=== PATIENT | male | born 1950 | race Two or more races ===

== ENCOUNTER 2025-01-04 07:22 | Emergency (ER) | payer MEDICARE, MEDICAID, SELFPAY ==
--- NOTE | 2025-01-04 07:34 | EKG_ITS ---
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
[2025-01-04 07:44] VITALS: BP 113/75; PULSE 90; RESP 17; TEMP 37.2; O2SAT 96
[2025-01-04 07:57] LABS: Collection Type, Urine Clean Catch
--- NOTE | 2025-01-04 07:57 | EDRME_ITS ---
Rapid Medical Screening Exam E Arrival date/time: 01/04/25 07:22 Chief Complaint: Weakness Vital signs: Vital Signs Temperature 98.9 F 01/04/25 07:44 Pulse Rate 90 01/04/25 07:44 Respiratory Rate 17 01/04/25 07:44 Blood Pressure 113/75 01/04/25 07:44 Pulse Oximetry (%) 96 01/04/25 07:44 Oxygen Delivery Method Room Air 01/04/25 07:44 Pulse ox room air is 96% Vital signs reviewed by provider: Yes [facility] Narrative: Patient after eating a hearty meal of chicken tacos developed vomiting. This occurred 1 week ago and since then has not vomited. However the patient did develop incontinence and is unable to control his urine. Denies a headache.
--- NOTE | 2025-01-04 07:59 | XR_ITS ---
Examination: CT brain head without contrast. 2-D sagittal coronal reconstructions Date and time of exam:January 04, 2025 0825 hours INDICATIONS: Spontaneous development of incontinence beginning 6 days ago CTDI: vol (mGy):48.9 DLP: (mGycm):13 Technique: Multiple CT axial sections of the brain have been obtained, 5 mm slice thickness. Contrast has not been administered. 2-D sagittal, coronal reconstructions have been obtained Low dose protocols were performed. One or more of the following dose reduction techniques were used; automated exposure control, adjustment of the mA and/or KV according to patient size, use of iterative reconstruction technique. Findings: No significant ventricular enlargement. Intra-axial or extra-axial hemorrhage density is not seen. No mass effect or midline shift Basal cisterns are not remarkable. Fourth ventricle is midline. Cranial vault intact. Significant left maxillary antral sinusitis Left temporal lobe tip subarachnoid cyst Impression: Negative for acute hemorrhage, mass effect or midline shift
[2025-01-04 08:12] LABS: Basophils # (Auto) 0.0 Thou/mm3 (0.0-0.2); Basophils % (Auto) 0 % (0-2.5); Eosinophils # (Auto) 0.0 Thou/mm3 (0.0-0.5); Eosinophils % (Auto) 0 % (0-10); Hematocrit 47.6 % (41.0-53.0); Hemoglobin 15.6 g/dL (13.5-16.0); Immature Granulocytes Auto 0.04 Thou/mm3 (0.00-0.00); Lymphocytes # (Auto) 0.5 Thou/mm3 (1.0-4.8); Lymphocytes % (Auto) 7 % (10-50); Mean Corpuscular HGB Conc 32.8 g/dl (31.0-37.0); Mean Corpuscular Hemoglobin 26.8 pg (25.0-35.0); Mean Corpuscular Volume 82 fL (80-100); Monocytes # (Auto) 0.7 Thou/mm3 (0.0-0.8); Monocytes % (Auto) 9 % (0-12); Neutrophils # (Auto) 6.4 Thou/mm3 (1.8-7.7); Neutrophils % (Auto) 83 % (37-80); Nucleated Red Blood Cell # 0.00 Thou/mm3 (0.00-0.00); Nucleated Red Blood Cell % 0 /100 WBC (0); Platelet Count 102 Thou/mm3 (140-440); RDW Standard Deviation 43.2 fL (35.1-43.9); Red Blood Count 5.82 Miln/mm3 (4.50-5.90); White Blood Count 7.7 Thou/mm3 (3.8-10.6)
[2025-01-04 08:20] LABS: Alanine Aminotransferase 36 U/L (10-49); Albumin, Serum 4.0 gm/dL (3.4-4.8); Albumin/Globulin Ratio 1.4 (1.2-2.2); Alkaline Phosphatase 149 U/L (46-116); Anion Gap 11 (7-16); Aspartate Amino Transferase 43 U/L (0-34); BUN/Creatinine Ratio 19 Ratio (12-20); Bilirubin,Total 0.9 mg/dL (0.3-1.2); Blood Urea Nitrogen 25 mg/dL (9-23); Calcium 9.3 mg/dL (8.3-10.6); Calcium (Corrected) 9.3 mg/dL (8.5-10.1); Carbon Dioxide 25.6 mMol/L (20.0-31.0); Chloride 100 mMol/L (98-107); Creatinine (Component) 1.3 mg/dL (0.6-1.3); Globulin 2.8 gm/dL (2.3-3.5); Glucose 108 mg/dL (74-106); Osmolality,Calculated 279 (275-295); Potassium 4.0 mMol/L (3.4-5.1); Sodium 137 mMol/L (136-145); Total Protein 6.8 gm/dL (5.7-8.2); eGFR 58 See Note
[2025-01-04 08:45] LABS: Bacteria,Urine 2+; Bilirubin,Urine Negative (Negative); Blood,Urine 3+ (Negative); Clarity,Urine Turbid (Clear/Hazy); Color,Urine Yellow (Lt Yel-Yel); Glucose, Urine Negative (Negative); Ketones,Urine 2+ (Negative); Leukocyte Esterase,Urine Positive (Negative); Nitrite,Urine Negative (Negative); PH,Urine 6.5 (5.0-7.0); Protein,Urine 1+ (Neg - Trace); RBC,Urine 129 /hpf (0-3); Specific Gravity,Urine 1.029 (1.001-1.035); Squamous Epithelial Cell,Urine < 1 /hpf (0-5); Transitional Epi Cells,Urine 2 /hpf (0-5); Urobilinogen,Urine 2.0 mg/dL (0.0-1.0); WBC,Urine 645 /hpf (0-5)
[2025-01-04 08:46] LABS: Culture Indicated,Urine Yes
[2025-01-04 10:02] VITALS: BP 115/76; PULSE 78; RESP 19; TEMP 36.9; O2SAT 97; BMI 25.5
--- NOTE | 2025-01-04 10:57 | PD.EDWEAK ---
ED Weakness RME/HPI General Chief complaint: Weakness Stated complaint: Fever, vomiting, urinating a lot Source: patient and family Arrival date/time: 01/04/25 07:22 Mode of arrival: ambulatory Limitations: no limitations RME / HPI RME / HPI Narrative: Patient after eating a hearty meal of chicken tacos developed vomiting. This occurred 1 week ago and since then has not vomited. However the patient did develop incontinence and is unable to control his urine. Denies a headache. MD Complaint: generalized weakness Related Data Home Medications ?Medication ?Instructions ?Recorded ?Confirmed benazepril 20 mg tablet 20 mg PO QDAY 01/22/22 02/23/22 tamsulosin 0.4 mg capsule 0.4 mg PO QDAY 01/22/22 02/23/22 Previous Rx's ?Medication ?Instructions ?Recorded azithromycin 500 mg tablet See Rx Instructions PO .COMPLEX #6 05/15/23 tabs cephalexin 500 mg tablet 500 mg PO QID #40 tabs 01/04/25 Allergies Allergy/AdvReac Type Severity Reaction Status Date / Time No Known Allergies Allergy Verified 01/04/25 07:26 Review of Systems Constitutional Constitutional: Reports system reviewed and no additional complaints, except as documented Eyes Eyes: Reports system reviewed and no additional complaints, except as documented, Denies dry eyes, Denies exophthalmos and Reports floaters Cardiovascular Cardiovascular: Denies chest pain with activity and Denies claudication ED Exam General Limitations: Present no limitations General appearance: Present alert and in no apparent distress Head Head exam: Present atraumatic Eye Eye exam: Present normal appearance and EOMI ENT ENT exam: Present normal exam, normal oropharynx and mucous membranes moist Neck Neck exam: Present normal inspection, full ROM and trachea midline Respiratory Respiratory exam: Present normal lung sounds bilaterally Cardiovascular Cardiovascular exam: Present regular rate, normal rhythm and normal heart sounds Abdominal Exam Abdominal exam: Present soft, tenderness (No apparent tenderness to palpation.) and normal bowel sounds Rectal Exam Rectal exam: Present deferred Extremities Exam Extremities exam: Present normal inspection and full ROM Back Exam Back exam: Present normal inspection, full ROM and CVA tenderness (R) (Negative CVA tenderness.) Neurological Exam Neurological exam: Present alert and oriented X3 Psychiatric Psychiatric exam: Present normal affect and normal mood Skin Skin exam: Present warm, dry, intact and normal color Course Course Course Narrative: Patient will have a EKG, CT of the head, CBC, CMP, UA,. Quality Measures none Orders Category Date Time Status Bedside COVID-19 Antigen Test NOW Care 01/04/25 07:34 Active Bedside Influenza A&B Antigen Test NOW Care 01/04/25 07:36 Completed EKG (ED ONLY) *Do not use* NOW Care 01/04/25 07:[address] head/brain wo con Stat Exams 01/04/25 07:59 Completed EKG (ED Only) Stat Exams 01/04/25 07:34 Ordered CBC Stat Lab 01/04/25 07:41 Completed CMP [Comprehensive Metabolic Panel] Stat Lab 01/04/25 07:41 Completed Urinalysis, C/S if Indicated Stat Lab 01/04/25 07:42 Completed Urine Culture Stat Lab 01/04/25 07:42 Received cefTRIAXone [Rocephin] 1,000 mg Med 01/04/25 10:36 Discontinued Lidocaine 1% 20 ml [Xylocaine 1% 20 ML] 2.1 ml IM X1 Vital Signs Vital signs: Vital Signs Temperature 98.9 F 01/04/25 07:44 Pulse Rate 90 01/04/25 07:44 Respiratory Rate 17 01/04/25 07:44 Blood Pressure 113/75 01/04/25 07:44 Pulse Oximetry (%) 96 01/04/25 07:44 Oxygen Delivery Method Room Air 01/04/25 07:44 Pulse ox is 96% Weakness MDM Narrative MDM Narrative:: Patient who has a urinary tract infection will have 1 g of Rocephin. He will be discharged home in no apparent distress. I was sent to the pharmacy of his choice cephalexin 500 mg to be consumed 1 p.o. every 6 hours x 10 days. Patient is to have a close follow-up with primary care physician and if he needs to he may return here. Note the patient does not have any CVA tenderness nor does he have any abdominal pain nor does he exhibit any pain consistent with a kidney stone. I spoke with Dr. Rosa and present in his case. It is agreed that the patient has a urinary tract infection and that he has to be discharged to home. Patient data External records reviewed:: Other (specify) (NA) Clinical information provided by:: none (NA) Social determinants that could affect healthcare access:: none (NA) Patient has the following chronic illnesses:: HTN How is presenting disease/condition affected by chronic disease/condition?: no chronic disease (HTN) Evaluation data The following diagnostics were reviewed and interpreted by me:: lab results (UA demonstrates a urinary tract infection) Lab and/or radiology exams considered but not ordered:: NA Interpretation Summary: NA Medications / Prescriptions Medications or Prescriptions considered but not ordered:: NA Medication administrations:: Medication Administration History Discontinued Medications Ceftriaxone Sodium 1,000 mg/ (Lidocaine HCl 2.1 ml) 0 mg IM X1 ONE Stop: 01/04/25 10:37 NA Consultations Consultation(s) initiated? (list below): No Diagnosis Weakness Differential Diagnosis: anemia, hypoglycemia and hypothyroidism Most likely diagnosis given after review of the tests above:: NA Admission Indicated Admission indicated?: not indicated Admission Request Was there a request for admission?: No Disposition Plan Disposition Plan: Discharge Discharge Attestation Discharge Attestation: The patient and all family members were given an opportunity to ask questions and understood the discharge instructions. Discharge instructions specifically effects, indications for sooner follow up or return to the emergency department, and the expected course of current diagnosis. Patient condition: Stable Discharge Plan Plan Patient Disposition: HOME (Self Care) Discharge Disposition comment: Discharged in no apparent distress Patient condition on transfer: Stable Prescriptions/Referrals Prescriptions/Med Rec: New cephalexin 500 mg tablet 500 mg PO QID Qty: 40 0RF No Action tamsulosin 0.4 mg Capsule 0.4 mg PO QDAY benazepril 20 mg Tablet 20 mg PO QDAY azithromycin 500 mg tablet See Rx Instructions .ROUTE .COMPLEX Qty: 6 0RF Rx Instructions: take 500 mg today (day 1), then 250 mg for 4 days (days 2-5) Referrals: Inocencia Parekh PA-C [Primary Care Provider] - In 1 week Problem List Clinical Impression: Acute UTI Patient/Caregiver Discharge Instructions Discharge Activity: activity as tolerated Print Language: Estonian Stand Alone Forms: Delma Award Info., Patient Portal Info Letter FRANCK/KAY Supervising Physician FRANCK/KAY Supervising Physician: MARCIA
[2025-01-04] MEDS: cefTRIAXone 1,000 MG, LIDOCAINE 1% 20 ML 2.1 ML IM (11:09)
[2025-01-04 11:22] VITALS: BP 115/82; PULSE 71; RESP 17; TEMP 36.6; O2SAT 98
== END 2025-01-04 11:24 | disposition home or self-care (01) ==
PROVIDERS: Emergency Provider Emergency Medicine; PCP Physician Assistant
DX: N39.0 Urinary tract infection, site not specified (principal); I44.4 Left anterior fascicular block
CPT/HCPCS: 36415; 70450; 80053; 81001; 85025; 87077; 87086; 87186; 87400; 87811; 93005; 99283; J0696; J3490

== ENCOUNTER 2025-01-23 13:21 | Inpatient (IN) | payer MEDICARE, MEDICAID, SELFPAY ==
--- NOTE | 2025-01-23 14:06 | XR_ITS ---
Examination: PA chest single view TECHNIQUE: Upright PA chest single view Date and time: January 23, 2025 1413 hours INDICATIONS: Chest pain shortness of breath fever today FINDINGS: Normal heart size Suspicious for early pneumonia right base Left lung clear Mild osteopenia IMPRESSION: Suspicious for early right basilar pneumonia
--- NOTE | 2025-01-23 14:06 | EKG_ITS ---
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
--- NOTE | 2025-01-23 14:06 | XR_ITS ---
Examination: CT abdomen with intravenous contrast CT pelvis with intravenous contrast 2-D coronal reconstructions 2-D sagittal reconstructions Date and time of exam:January 23, 2025, 1434 hours Comparison December 02, 2021 INDICATIONS: Fever upper abdominal pain today. CTDI: vol (mGy) 14.3 DLP: (mGycm) 657. Technique: Multiple axial sections of the abdomen and pelvis have been obtained. 64 slice high-resolution scanner used. 3 mm axial sections have been obtained, post intravenous injection of 60 cc [id number] 2-D sagittal, coronal reconstructions obtained. Low dose protocols were performed. One or more of the following dose reduction techniques were used; automated exposure control, adjustment of the mA and/or KV according to patient size, use of iterative reconstruction technique. Findings: 18 mm right lobe liver cyst No gallstones Marked gastric edema and edema involving the duodenum No pancreatitis Normal adrenal glands Left perinephric stranding No renal or ureteral calculi No ureteral calculi Aorta normal size Normal appendix Colonic diverticulosis, no diverticulitis Significant prostatomegaly AP dimension 5.5 cm Marked thickening of the urinary bladder wall Fat-containing inguinal hernias IMPRESSION: Gastritis active peptic disease of the duodenum pattern Left perinephric stranding, consider urinary tract infection Normal appendix Significant prostatomegaly Thickening of the bladder wall, differential would include cystitis, urinary tract outflow obstruction secondary to the patient's prostatomegaly
--- NOTE | 2025-01-23 14:07 | PD.EDABDPN ---
ED Abdominal Pain RME/HPI General Chief Complaint: Abdominal Pain Stated complaint: FEVER, UPPER ABD PAIN Time seen by provider: 01/23/25 13:41 Arrival date/time: 01/23/25 13:21 RME / HPI RME / HPI narrative: 74-year-old male patient came in for evaluation regarding fever. Patient complaining of fever, since yesterday, described as low-grade fever associated with upper abdominal pain's been ongoing for several days, severity mild. Patient was also noted to have black stool for several days, more than 9 days according to him, and was seen in the clinic and was told that positive for blood. Patient currently is not taking any medication for upper GI bleed. Patient denies any vomiting blood. Patient also complained of generalized body weakness, and weight loss. He is not taking any blood thinner. Patient denies any alcohol abuse or drug abuse. Related Data Home Medications ?Medication ?Instructions ?Recorded ?Confirmed benazepril 20 mg tablet 20 mg PO QDAY 01/22/22 02/23/22 tamsulosin 0.4 mg capsule 0.4 mg PO QDAY 01/22/22 02/23/22 Previous Rx's ?Medication ?Instructions ?Recorded azithromycin 500 mg tablet See Rx Instructions PO .COMPLEX #6 05/15/23 tabs cephalexin 500 mg tablet 500 mg PO QID #40 tabs 01/04/25 Allergies Allergy/AdvReac Type Severity Reaction Status Date / Time No Known Allergies Allergy Verified 01/23/25 13:25 Review of Systems Review of Systems Narrative Review of Systems: Review of system reviewed and within normal limits except mentioned in HPI ED Exam Narrative Physical exam: VITAL SIGNS: Reviewed. GENERAL APPEARANCE: Alert and interactive, follows commands, no acute distress, HEAD AND FACE: Non-traumatic. ENT: PERRL, pale conjunctiva, eyelid no trauma, Mucous membrane moist. NECK: Supple, nontender, no nuchal rigidity. CHEST: No tenderness, no crepitus, no paradoxical movement, no retractions. LUNGS: Clear, well ventilated, symmetric, no rales, no wheezing, no ronchi, no stridor, good breath sounds bilaterally. HEART: Regular rate, regular rhythm, no murmur, no gallops. ABDOMEN: Soft, positive bowel sounds, nondistended, no guarding, nontender, no rebound, no masses, RECTAL: Rectal exam was done by me, no black tarry stool however tested positive for occult blood strongly. GENITAL: Deferred. NEUROLOGICAL: Gross motor function intact sensory function intact, Appropriate for age. MUSCULOSKELETAL: low back nontender, full range of motion. EXTREMITIES: Nontender, full range of motion. SKIN: Color pink, dry, no rash, no lacerations, no abrasions, no contusions. LYMPHATICS: Deferred. Course Quality Measures none Orders Category Date Time Status Bedside COVID-19 Antigen Test NOW Care 01/23/25 14:06 Active COVID-19 Screening Questionnaire NOW Care 01/23/25 19:[address] Screening NOW Care 01/23/25 14:06 Active Decision to Admit X1 Care 01/23/25 19:27 Active EKG (ED ONLY) *Do not use* NOW Care 01/23/25 14:06 Completed Occult Blood,Stool (Nursing) NOW Care 01/23/25 13:59 Active Consult to Gastroenterology Stat Cons 01/23/25 18:[address] abdomen pelvis w con Stat Exams 01/23/25 14:06 Completed EKG (ED Only) Stat Exams 01/23/25 14:06 Draft XR chest 1V Stat Exams 01/23/25 14:06 Completed CBC Stat Lab 01/23/25 14:35 Completed Comprehensive Metabolic Panel Stat Lab 01/23/25 14:35 Completed Lipase Stat Lab 01/23/25 14:35 Completed Partial Thromboplastin Time Stat Lab 01/23/25 14:35 Completed Prothrombin Time with INR Stat Lab 01/23/25 14:35 Completed Urinalysis Stat Lab 01/23/25 13:35 Completed Acetaminophen Ivpb [Ofirmev Inj] Med 01/23/25 18:25 Discontinued 1,000 mg in 100 ml IV X1 Pantoprazole Inj [Protonix Inj] Med 01/23/25 14:06 Discontinued 80 mg IVP X1 ONE cefTRIAXone/D5w 1gm IV premix [Rocephin/D5w 1gm IV Med 01/23/25 16:04 Discontinued premix] 1 gm in 50 ml IV X1 Vital Signs Vital signs: Vital Signs Temperature 99.8 F 01/23/25 14:24 Pulse Rate 78 01/23/25 14:24 Respiratory Rate 19 01/23/25 14:24 Blood Pressure 117/73 01/23/25 14:24 Pulse Oximetry (%) 98 01/23/25 14:24 Oxygen Delivery Method Room Air 01/23/25 14:24 Abdominal Pain MDM MDM Narrative MDM Narrative:: 74-year-old male patient came in for evaluation regarding fever. Patient complaining of fever, since yesterday, described as low-grade fever associated with upper abdominal pain's been ongoing for several days, severity mild. Patient was also noted to have black stool for several days, more than 9 days according to him, and was seen in the clinic and was told that positive for blood. Patient currently is not taking any medication for upper GI bleed. Patient denies any vomiting blood. Patient also complained of generalized body weakness, and weight loss. He is not taking any blood thinner. Patient denies any alcohol abuse or drug abuse. Rectal exam was done by me, tested positive for occult blood strong positive. There is no significant drop of hemoglobin from 15+ to 11+ about 2 weeks ago. Urinalysis positive for UTI. Chest x-ray showed possible early pneumonia. CT scan of the abdomen pelvis showed Gastritis active peptic disease of the duodenum pattern Left perinephric stranding, consider urinary tract infection Normal appendix Significant prostatomegaly Thickening of the bladder wall, differential would include cystitis, urinary tract outflow obstruction secondary to the patient's prostatomegaly Patient received Tylenol, ceftriaxone IV Protonix IV Case discussed with Dr. Brewer, GI specialist on-call, and will see the patient in the floor. Patient data External records reviewed:: None Clinical information provided by:: patient and family Social determinants that could affect healthcare access:: none Patient has the following chronic illnesses:: None How is presenting disease/condition affected by chronic disease/condition?: no chronic disease Evaluation data The following diagnostics were reviewed and interpreted by me:: lab results, radiology exam(s) and EKG tracing(s) Lab and/or radiology exams considered but not ordered:: None Interpretation Summary: EKG showed sinus rhythm, ventricular rate of 72 bpm, no ST segment elevation or depression noted. Medications / Prescriptions Medications or Prescriptions considered but not ordered:: None Medication administrations:: Medication Administration History Discontinued Medications Ceftriaxone Sodium/Dextrose (Rocephin/D5w 1gm Iv Premix) 1 gm in 50 mls @ 100 mls/hr IV X1 ONE Stop: 01/23/25 16:33 Last Infusion: 01/23/25 18:16 Dose: Infused Documented By: Admin: 01/23/25 17:46 Dose: 100 mls/hr Documented By: ER Acetaminophen (Ofirmev Inj) 1,000 mg in 100 mls @ 250 mls/hr IV X1 ONE Stop: 01/23/25 18:48 Last Infusion: 01/23/25 19:19 Dose: Infused Documented By: Admin: 01/23/25 18:55 Dose: 250 mls/hr Documented By: ER Pantoprazole Sodium (Pantoprazole Inj 40 Mg Vial) 80 mg IVP X1 ONE Stop: 01/23/25 14:07 Last Admin: 01/23/25 17:42 Dose: 80 mg Documented By: ER Tylenol, Protonix, and ceftriaxone IV Consultations Consultation(s) initiated? (list below): Yes Consultation #1 (Physician, Specialty, Details): Spoke with Dr. Brewer, thank you Dr. Brewer Diagnosis Differential diagnosis abdominal pain: abdominal pain and other (UTI, upper GI bleed) Most likely diagnosis given after review of the tests above:: Upper GI bleed, UTI Admission Indicated Admission indicated?: indicated Admission Request Was there a request for admission?: Yes Admission Attestation Admission request attestation: Discussed case with [Dr. Roberts] from Hospitalist service regarding admission. Discussed patients ED course, exam findings, labs, and radiology results. The Hospitalist [agrees] to accept the patient for admission. Disposition Plan Disposition Plan: Admit Discharge Plan Plan Patient Disposition: Admit Acute Care w/in Hospital Discharge Disposition comment: Stable Prescriptions/Referrals Prescriptions/Med Rec: No Action tamsulosin 0.4 mg Capsule 0.4 mg PO QDAY benazepril 20 mg Tablet 20 mg PO QDAY cephalexin 500 mg tablet 500 mg PO QID Qty: 40 0RF azithromycin 500 mg tablet See Rx Instructions .ROUTE .COMPLEX Qty: 6 0RF Rx Instructions: take 500 mg today (day 1), then 250 mg for 4 days (days 2-5) Referrals: Inocencia Parekh PA-C [Primary Care Provider] - In 1 week Problem List Clinical Impression: Acute upper gastrointestinal bleeding, UTI (urinary tract infection) Patient/Caregiver Discharge Instructions Print Language: Kiswahili Stand Alone Forms: Delma Award Info., Patient Portal Info Letter
[2025-01-23 14:24] VITALS: BP 117/73; PULSE 78; RESP 19; TEMP 37.7; O2SAT 98
[2025-01-23 14:25] VITALS: BMI 24.0
[2025-01-23 14:25] LABS: Collection Type, Urine Clean Catch
[2025-01-23 14:50] LABS: Basophils # (Auto) 0.0 Thou/mm3 (0.0-0.2); Basophils % (Auto) 0 % (0-2.5); Eosinophils # (Auto) 0.0 Thou/mm3 (0.0-0.5); Eosinophils % (Auto) 0 % (0-10); Hematocrit 36.5 % (41.0-53.0); Hemoglobin 11.6 g/dL (13.5-16.0); Immature Granulocytes Auto 0.05 Thou/mm3 (0.00-0.00); Lymphocytes # (Auto) 0.9 Thou/mm3 (1.0-4.8); Lymphocytes % (Auto) 8 % (10-50); Mean Corpuscular HGB Conc 31.8 g/dl (31.0-37.0); Mean Corpuscular Hemoglobin 26.9 pg (25.0-35.0); Mean Corpuscular Volume 85 fL (80-100); Monocytes # (Auto) 0.7 Thou/mm3 (0.0-0.8); Monocytes % (Auto) 6 % (0-12); Neutrophils # (Auto) 9.5 Thou/mm3 (1.8-7.7); Neutrophils % (Auto) 85 % (37-80); Nucleated Red Blood Cell # 0.00 Thou/mm3 (0.00-0.00); Nucleated Red Blood Cell % 0 /100 WBC (0); Platelet Count 216 Thou/mm3 (140-440); RDW Standard Deviation 45.7 fL (35.1-43.9); Red Blood Count 4.32 Miln/mm3 (4.50-5.90); White Blood Count 11.1 Thou/mm3 (3.8-10.6)
[2025-01-23 15:09] LABS: Amorphous Crystals,Urine Present (Absent); Bacteria,Urine 4+; Bilirubin,Urine Negative (Negative); Blood,Urine 2+ (Negative); Clarity,Urine Turbid (Clear/Hazy); Color,Urine Yellow (Lt Yel-Yel); Glucose, Urine Negative (Negative); Ketones,Urine 1+ (Negative); Leukocyte Esterase,Urine Positive (Negative); Nitrite,Urine Negative (Negative); PH,Urine 6.0 (5.0-7.0); Protein,Urine 1+ (Neg - Trace); RBC,Urine 18 /hpf (0-3); Specific Gravity,Urine 1.027 (1.001-1.035); Squamous Epithelial Cell,Urine 1 /hpf (0-5); Urobilinogen,Urine 3.0 mg/dL (0.0-1.0); WBC,Urine 321 /hpf (0-5)
[2025-01-23 15:11] LABS: Alanine Aminotransferase 20 U/L (10-49); Albumin, Serum 4.1 gm/dL (3.4-4.8); Albumin/Globulin Ratio 1.6 (1.2-2.2); Alkaline Phosphatase 67 U/L (46-116); Anion Gap 10 (7-16); Aspartate Amino Transferase 21 U/L (0-34); BUN/Creatinine Ratio 20 Ratio (12-20); Bilirubin,Total 1.7 mg/dL (0.3-1.2); Blood Urea Nitrogen 20 mg/dL (9-23); Calcium 9.0 mg/dL (8.3-10.6); Calcium (Corrected) 9.0 mg/dL (8.5-10.1); Carbon Dioxide 25.3 mMol/L (20.0-31.0); Chloride 102 mMol/L (98-107); Creatinine (Component) 1.0 mg/dL (0.6-1.3); Estimated Creatinine Clearance 77.6 mL/min (>60); Globulin 2.5 gm/dL (2.3-3.5); Glucose 116 mg/dL (74-106); Lipase 26 U/L (12-53); Osmolality,Calculated 277 (275-295); Potassium 3.8 mMol/L (3.4-5.1); Sodium 137 mMol/L (136-145); Total Protein 6.6 gm/dL (5.7-8.2); eGFR > 60 See Note
[2025-01-23 15:16] LABS: INR 1.1 (0.9-1.3); Partial Thromboplastin Time 26.3 Seconds (22.0-36.0); Prothrombin Time 12.4 Seconds (9.0-12.2)
[2025-01-23 16:32] VITALS: BP 133/78; PULSE 78; RESP 19; TEMP 37.7; O2SAT 98
[2025-01-23 17:10] VITALS: BP 146/81; PULSE 89; RESP 20; TEMP 38.2; O2SAT 100
[2025-01-23] MEDS: cefTRIAXone/D5w 1gm IV premix 1 GM/50 ML BAG IV (17:46)
[2025-01-23 18:01] VITALS: BP 138/79; PULSE 88; RESP 16; TEMP 37.7; O2SAT 98
[2025-01-23] MEDS: ACETAMINOPHEN IVPB 1,000 MG/100 ML VIAL 250 MG IV (18:55)
--- NOTE | 2025-01-23 21:38 | ESHP_ITS ---
Documentation for date of: 01/23/25 [facility] History of Present Illness Chief complaint: Upper GI bleed/PUD History of present illness: 74-year-old male with a past medical history of hypertension and prior H. pylori infection (treated), presenting with intermittent melena for the past 2?3 weeks, associated with fatigue, dizziness on exertion, subjective weight loss per patients and daughter(~30-40 lbs over 1-2 month), and recent low-grade fevers. He also reports mild upper abdominal discomfort for the past few days. He denies hematemesis, bright red blood per rectum, nausea, vomiting, or chest pain. He endorses early satiety and poor oral intake. No shortness of breath, palpitations, or recent trauma. He was previously evaluated for melena in clinic and had positive stool occult blood. He was seen in the ED several weeks ago for a UTI and discharged on azithromycin and cephalexin. He completed the antibiotics but reports fever recurrence today, the day after returning from [place]. He denies NSAID use except for one dose of Motrin recently. He denies any anticoagulants, antiplatelets, alcohol, or drug use. No known prior GI bleeding. Per patient Last EGD and colonoscopy were done in [address] Brewer EGD showed an ulcer in the duodenum and was tested positive for H. pylori, colonoscopy showed a polyp that was removed. This is per patient EGD and colonoscopy report not found on EMR. ROS: Constitutional: +Weight loss, +Fatigue, +Fever GI: +Melena, -Hematemesis, -BRBPR, +Decreased appetite, +Upper abdominal pain : +Nocturia (~10x/night), -Hematuria, -Burning Cardio: -Chest pain, -Palpitations Pulm: -Cough, -Dyspnea Neuro: +Dizziness with activity, -Syncope MSK: No myalgias or joint pain Skin: No rashes or bleeding Past Medical History: * Hypertension * History of H. pylori gastritis (treated) Past Surgical History: * Hernia repair Medications: * Lisinopril * Recent antibiotics: Azithromycin, Cephalexin * 1 dose of Motrin recently for fever Allergies: * NKDA Family History: * Mother with liver cancer with metastasis Social History: * No tobacco or alcohol use currently (used in youth) * Returned from [place] yesterday * No known illicit drug use Imaging: Chest X-ray: Suspicious for early right basilar pneumonia CT Abd/Pelvis: -Gastritis and duodenal pattern consistent with active peptic disease -Left perinephric stranding -> consider UTI -Thickened bladder wall, prostatomegaly -> possible cystitis or obstruction Exam Vital Signs Temp Pulse Resp BP Pulse Ox O2 Del Method 99.9 F 88 16 138/79 H 98 Room Air 01/23/25 18:01 01/23/25 18:01 01/23/25 18:01 01/23/25 18:01 01/23/25 18:01 01/23/25 18:01 Narrative Exam General: Alert, interactive, no acute distress HEENT: Pale conjunctivae, moist mucosa, no trauma Neck: Supple, no JVD or lymphadenopathy CV: RRR, no murmurs, rubs, or gallops Resp: Clear to auscultation bilaterally Abdomen: Soft, nontender, nondistended, +BS, no guarding or rebound Rectal: positive FOBT Neuro: Grossly intact Skin: Dry, no rashes or ecchymoses Extremities: No edema, full ROM Results: Labs 01/23/25 14:35 01/23/25 14:35 Labs: Short CBC 01/23/25 Range/Units 14:35 WBC 11.1 H (3.8-10.6) Thou/mm3 Hgb 11.6 L (13.5-16.0) g/dL Hct 36.5 L (41.0-53.0) % Plt Count 216 D (140-440) Thou/mm3 BMP 01/23/25 14:35 Sodium 137 Potassium 3.8 Chloride 102 Carbon Dioxide 25.3 BUN 20 Creatinine 1.0 Glucose 116 H Calcium 9.0 Liver Function 01/23/25 Range/Units 14:35 Total Bilirubin 1.7 H (0.3-1.2) mg/dL AST 21 (0-34) U/L ALT 20 (10-49) U/L Alkaline Phosphatase 67 (46-116) U/L Albumin 4.1 (3.4-4.8) gm/dL Urine 01/23/25 Range/Units 13:35 Urine Color Yellow (Lt Yel-Yel) Urine Clarity Turbid A (Clear/Hazy) Urine pH 6.0 (5.0-7.0) Ur Specific [place] 1.027 (1.001-1.035) Urine Protein 1+ A (Neg - Trace) Urine Glucose (UA) Negative (Negative) Quality Measures Quality Measures VTE prophylaxis Advance care planning discussed with:: patient, spouse and child Medications Home Medications and Allergies Home Medications ?Medication ?Instructions ?Recorded ?Confirmed ?Type benazepril 20 mg tablet 20 mg PO QDAY 01/22/2201/24 History tamsulosin 0.4 mg capsule 0.4 mg PO QDAY 01/22/2209/15 History Allergies Allergy/AdvReac Type Severity Reaction Status Date / Time No Known Allergies Allergy Verified 01/23/25 13:25 Visit Medications Discontinued Medications Ceftriaxone Sodium/Dextrose (Rocephin/D5w 1gm Iv Premix) 1 gm in 50 mls @ 100 mls/hr IV X1 ONE Stop: 01/23/25 16:33 Last Infusion: 01/23/25 18:16 Dose: Infused Acetaminophen (Ofirmev Inj) 1,000 mg in 100 mls @ 250 mls/hr IV X1 ONE Stop: 01/23/25 18:48 Last Infusion: 01/23/25 19:19 Dose: Infused Pantoprazole Sodium (Pantoprazole Inj 40 Mg Vial) 80 mg IVP X1 ONE Stop: 01/23/25 14:07 Last Admin: 01/23/25 17:42 Dose: 80 mg Assessment & Plan Plan 74-year-old male with history of hypertension presenting with 2?3 weeks of melena, fatigue, and weight loss, found to have anemia (Hgb 11.6 from 15.8), CT evidence of duodenal peptic disease, and positive FOBT; also febrile on admission with UA suggestive of UTI and CXR showing possible early pneumonia. # Upper GI Bleed 74M with melena x2?3 weeks, Hgb drop from 15.8 -> 11.6, CT showing active duodenal peptic disease, FOBT strongly positive. CT A/P: Gastritis and duodenal pattern of active peptic disease IV Pantoprazole 80 mg given Plan: * NPO * Monitor H/H * Type and screen * Transfuse PRBCs if Hgb <7 or symptomatic * GI to evaluate for EGD (Dr. Brewer already consulted) * Hold NSAIDs * Start IV fluids if needed for volume support # Symptomatic Anemia Likely secondary to chronic GI blood loss, presenting with fatigue, exertional dizziness, and 30?40 lb weight loss. Hgb 11.6, Fatigue Plan: * Monitor for worsening symptoms * Iron studies * Consider PRBC transfusion if Hgb <7 or if symptomatic * Replete iron as needed once stable # UTI / Prostatitis (complicated) Febrile, UA positive, left perinephric stranding and bladder wall thickening on CT. WBC 11.1 Sofa score: 1 (bili 1.7) Plan: * Continue IV ceftriaxone * Send urine culture (done) * Trend WBC, monitor for clinical improvement * Monitor for urinary retention / incomplete bladder emptying * Consider urology if persistent symptoms or obstruction suspected # Recent Fever Post-Travel ([place]) Low-grade fever today after returning from [place], on background of recent UTI treatment. Tmax 100.7, WBC 11.1 CXR: Suspicious for early right basilar pneumonia Plan: * Monitor temperature q4h * Continue ceftriaxone (covers for UTI + CAP) * Reassess with cultures # History of H. pylori Gastritis Previously treated with triple therapy last year after EGD; may have recurrence or related peptic injury. CT showing duodenal peptic pattern Plan: * Await Dr Osman pineda * Review prior records for H. pylori test of cure # Hypertension Chronic, on lisinopril, hemodynamically stable on admission. Plan: * Continue lisinopril if no CHERY * Monitor BP, hold if hypotensive Health Maintenance Disposition: Admit to tele Diet: NPO Thromboprophylaxis: SCDs now GI prophylaxis: Pantoprazole IV Code Status: Full code ----- Plan discussed with attending physician Dr. Esme Goldsmith MD PGY-1 Internal Medicine Attending Provider Attestation/Addendum Attending Provider Attestation/Addendum After examination of the patient and review of the clinical data I feel that this patient needs admission to the hospital for further treatment/evaluation. I Jerman Bowling MD, attest that I was physically present for nieves portions of evaluation, and examined patient, labs and imagings and plan of care were discussed with IM residents team, and I agree with the findings and plans documented above.
[2025-01-23 23:04] VITALS: BP 109/56; PULSE 71; RESP 18; TEMP 37.6; O2SAT 97
[2025-01-23 23:17] VITALS: PULSE 70; RESP 18; O2SAT 98
--- NOTE | 2025-01-23 23:59 | PC.NURSE ---
per patient he does not take any home meds
[2025-01-24] VITALS (14 sets, daily range): BP systolic 89–127; BP diastolic 54–77; PULSE 64–88; RESP 12–23; TEMP 36.1–37.3; O2SAT 93–99; BMI 23.8
[2025-01-24 05:44] LABS: Basophils # (Auto) 0.0 Thou/mm3 (0.0-0.2); Basophils % (Auto) 0 % (0-2.5); Eosinophils # (Auto) 0.0 Thou/mm3 (0.0-0.5); Eosinophils % (Auto) 0 % (0-10); Hematocrit 34.4 % (41.0-53.0); Hemoglobin 11.0 g/dL (13.5-16.0); Immature Granulocytes Auto 0.04 Thou/mm3 (0.00-0.00); Lymphocytes # (Auto) 0.7 Thou/mm3 (1.0-4.8); Lymphocytes % (Auto) 6 % (10-50); Mean Corpuscular HGB Conc 32.0 g/dl (31.0-37.0); Mean Corpuscular Hemoglobin 26.8 pg (25.0-35.0); Mean Corpuscular Volume 84 fL (80-100); Monocytes # (Auto) 1.0 Thou/mm3 (0.0-0.8); Monocytes % (Auto) 9 % (0-12); Neutrophils # (Auto) 9.0 Thou/mm3 (1.8-7.7); Neutrophils % (Auto) 84 % (37-80); Nucleated Red Blood Cell # 0.00 Thou/mm3 (0.00-0.00); Nucleated Red Blood Cell % 0 /100 WBC (0); Platelet Count 172 Thou/mm3 (140-440); RDW Standard Deviation 45.4 fL (35.1-43.9); Red Blood Count 4.10 Miln/mm3 (4.50-5.90); White Blood Count 10.7 Thou/mm3 (3.8-10.6)
[2025-01-24 06:29] LABS: Alanine Aminotransferase 14 U/L (10-49); Albumin, Serum 3.7 gm/dL (3.4-4.8); Albumin/Globulin Ratio 1.6 (1.2-2.2); Alkaline Phosphatase 61 U/L (46-116); Anion Gap 11 (7-16); Aspartate Amino Transferase 15 U/L (0-34); BUN/Creatinine Ratio 15 Ratio (12-20); Bilirubin,Total 1.2 mg/dL (0.3-1.2); Blood Urea Nitrogen 15 mg/dL (9-23); Calcium 8.7 mg/dL (8.3-10.6); Calcium (Corrected) 8.9 mg/dL (8.5-10.1); Carbon Dioxide 25.1 mMol/L (20.0-31.0); Chloride 102 mMol/L (98-107); Creatinine (Component) 1.0 mg/dL (0.6-1.3); Estimated Creatinine Clearance 77.6 mL/min (>60); Globulin 2.3 gm/dL (2.3-3.5); Glucose 102 mg/dL (74-106); Magnesium 2.0 mg/dL (1.6-2.6); Osmolality,Calculated 276 (275-295); Phosphorous 2.7 mg/dL (2.4-5.1); Potassium 3.7 mMol/L (3.4-5.1); Sodium 138 mMol/L (136-145); Total Protein 6.0 gm/dL (5.7-8.2); eGFR > 60 See Note
[2025-01-24 06:32] LABS: Iron 6 mcg/dL (65-175); Percent Iron Saturation 2 % (20-55); Total Iron Binding Capacity 230 mcg/dL (250-425); Unsaturated Iron Binding 224 (225-295)
[2025-01-24] MEDS: cefTRIAXone/D5w 1gm IV premix 1 GM/50 ML BAG IV (09:39)
--- NOTE | 2025-01-24 12:36 | ESPR_ITS ---
<Statement entered by Angela Arcos MD - 02/03/25 14:31> I reviewed above note and agree with findings and plans. I have also personally examined the patient with medicine team and went over assessment and plan with medical team including clinical nursing intern and resident physician. <Statement entered by Kirill Foss MD - 01/24/25 17:22> Patient is at bedside, patient's is at bedside who stated that patient received treatment for H. pylori by his primary care. Patient is scheduled for endoscopy today for follow-up with results and further recommendations. Patient has noticed black stools for a while but denies any hematochezia. Patient underwent colonoscopy last year ordered by his primary care. Patient was seen and examined by me personally. I have directly supervised and reviewed documentation by the team resident and agree with its findings with the above exceptions/and additional findings. ------- Plan of care was discussed with the attending, Dr. Isrrael Foss, PGY-2 Documentation for date of: 01/24/25 Subjective Subjective Interval history: Overnight events: Patient admitted overnight. No acute events overnight. Patient was seen and examined at bedside. AM vitals and labs reviewed. Patient has no complaints at this time. Patient clarified that he sought care ED specifically for shivering that reminds him of when he had a UTI on 01/04. Patient was sent home with cephalexin 500 mg every 6 hours for 10 days for the UTI, but the patient stated that he does not feel that it is better. Patient admits to not taking any prescribed medication except for the 10-day course of cephalexin. Patient stated that he was treated for H. pylori about a year ago. Patient will be kept n.p.o. until GI evaluates patient, plan to scope around 1430 possibly. Review of systems otherwise negative except for what is mentioned above. Exam Vital Signs Temp Pulse Resp BP Pulse Ox O2 Del Method 96.9 F 80 12 115/64 96 Room Air 01/24/25 12:01/24/25 12:01/24/25 12:01/24/25 12:00 01/24/25 12:01/24/25 12:00 Narrative Exam Physical Exam: General: Alert, no acute distress. Skin: Warm, dry, intact, no obvious rash. Head: Normocephalic, atraumatic. Eye: Normal conjunctiva, PERRL. Throat: Oral mucosa dry. Poor dentation. No obvious lesions in oropharynx. Cardiovascular: Regular rate and rhythm, no murmur, +S1/S2. Respiratory: Lungs are clear to auscultation, respirations unlabored, no crackles, no wheezing. Gastrointestinal: Soft, nontender, non-distended. No guarding or rebound tenderness. Extremities: No edema, no cyanosis, no clubbing. 2+ radial pulse bilaterally, 2+ pedal pulse bilaterally. Neuro: No focal deficits observed. Conversant, moving all extremities. No overt cerebellar signs/incoordination. Psychiatric: Cooperative, appropriate affect. Objective Labs 01/24/25 05:10 01/24/25 05:10 Labs: Laboratory Results - last 24 hr 01/23/25 01/23/25 01/23/25 13:35 14:35 22:32 WBC 11.1 H RBC 4.32 L Hgb 11.6 L Hct 36.5 L MCV 85 MCH 26.9 MCHC 31.8 RDW Std Deviation 45.7 H Plt Count 216 D Neut % (Auto) 85 H Lymph % (Auto) 8 L [place] % (Auto) 6 Eos % (Auto) 0 Baso % (Auto) 0 Neut # (Auto) 9.5 H Lymph # (Auto) 0.9 L [place] # (Auto) 0.7 Eos # (Auto) 0.0 Baso # (Auto) 0.0 Immature Gran # (Auto) 0.05 H Absolute Nucleated RBC 0.00 Immature Gran % 0 Nucleated RBC % 0 PT 12.4 H INR 1.1 APTT 26.3 Sodium 137 Potassium 3.8 Chloride 102 Carbon Dioxide 25.3 Anion Gap 10 BUN 20 Creatinine 1.0 Estim Creat Clear Calc 77.6 eGFR > 60 BUN/Creatinine Ratio 20 Glucose 116 H Calculated Osmolality 277 Calcium 9.0 Corrected Calcium 9.0 Phosphorus Magnesium Iron TIBC Iron Saturation Unsat Iron Binding Total Bilirubin 1.7 H AST 21 ALT 20 Alkaline Phosphatase 67 Total Protein 6.6 Albumin 4.1 Globulin 2.5 Albumin/Globulin Ratio 1.6 Lipase 26 Ur Collection Type Clean Catch Urine Color Yellow Urine Clarity Turbid A Urine pH 6.0 Ur Specific [place] 1.027 Urine Protein 1+ A Urine Glucose (UA) Negative Urine Ketones 1+ A Urine Blood 2+ A Urine Nitrite Negative Urine Bilirubin Negative Urine Urobilinogen (Auto) 3.0 Ur Leukocyte Esterase Positive Urine RBC 18 H Urine WBC 321 H Ur Squamous Epith Cells 1 Amorphous Crystals Present A Urine Bacteria 4+ A Blood Type A Positive Antibody Screen NEGATIVE Blood Bank Wristband ID Yes 01/24/25 05:10 WBC 10.7 H RBC 4.10 L Hgb 11.0 L Hct 34.4 L MCV 84 MCH 26.8 MCHC 32.0 RDW Std Deviation 45.4 H Plt Count 172 D Neut % (Auto) 84 H Lymph % (Auto) 6 L [place] % (Auto) 9 Eos % (Auto) 0 Baso % (Auto) 0 Neut # (Auto) 9.0 H Lymph # (Auto) 0.7 L [place] # (Auto) 1.0 H Eos # (Auto) 0.0 Baso # (Auto) 0.0 Immature Gran # (Auto) 0.04 H Absolute Nucleated RBC 0.00 Immature Gran % 0 Nucleated RBC % 0 PT INR APTT Sodium 138 Potassium 3.7 Chloride 102 Carbon Dioxide 25.1 Anion Gap 11 BUN 15 Creatinine 1.0 Estim Creat Clear Calc 77.6 eGFR > 60 BUN/Creatinine Ratio 15 Glucose 102 Calculated Osmolality 276 Calcium 8.7 Corrected Calcium 8.9 Phosphorus 2.7 Magnesium 2.0 Iron 6 L TIBC 230 L Iron Saturation 2 L Unsat Iron Binding 224 L Total Bilirubin 1.2 D AST 15 ALT 14 Alkaline Phosphatase 61 Total Protein 6.0 Albumin 3.7 Globulin 2.3 Albumin/Globulin Ratio 1.6 Lipase Ur Collection Type Urine Color Urine Clarity Urine pH Ur Specific [place] Urine Protein Urine Glucose (UA) Urine Ketones Urine Blood Urine Nitrite Urine Bilirubin Urine Urobilinogen (Auto) Ur Leukocyte Esterase Urine RBC Urine WBC Ur Squamous Epith Cells Amorphous Crystals Urine Bacteria Blood Type Antibody Screen Blood Bank Wristband ID Quality Measures Quality Measures VTE prophylaxis Advance care planning discussed with:: patient and spouse Assessment & Plan Assessment Current Active Medications: Generic Name Dose Route Start Last Admin Trade Name Freq PRN Reason Stop Dose Admin Ceftriaxone Sodium/Dextrose 1 gm in 50 mls @ 100 mls/hr 01/24/25 09:00 01/24/25 09:39 Rocephin/D5w 1gm Iv Premix IV 01/31/25 08:59 100 mls/hr QDAY BONITA Administration Pantoprazole Sodium 40 mg 01/24/25 09:00 01/24/25 09:39 Pantoprazole Inj 40 Mg Vial IVP 02/23/25 08:59 40 mg BID BONITA Administration Plan Mr. Mujica is a 74 year old male with a history of H. pylori infection [2023], HTN, recent UTI, BPH who sought care at [facility] ED for increased chills/shivering and fevers. The patient was admitted for upper GI bleed/PUD and UTI. #Symptomatic anemia #Upper GI bleed #Peptic ulcer disease #Iron deficiency anemia Patient had positive FOBT, intermittent melena for the past 2 to 3 weeks, and a hemoglobin drop from 15.8 to 11.6 in about [address] abdomen pelvis taken in ED showed gastritis and duodenal pattern consistent with active peptic disease. Iron panel shows iron of 6, TIBC 230, iron saturation 2%, and unsaturated iron binding 224, which suggests iron deficiency anemia. ? Consulted GI, appreciate recommendations ? Patient will continue to be n.p.o. until evaluated by GI ? Will continue to monitor with daily CBC ? Will transfuse if hemoglobin drops below 7 per protocol ? We will hold off on iron supplements and at this time, pending recommendation from GI #Urinary tract infection #Recurrent UTI Patient had a fever of 100.7 and chills with a UA that showed 321 WBC and 4+ bacteria. Urine leukocyte esterase positive. Patient was previously seen in ED on 01/04 with similar presentation, patient was found to have E. coli on urine culture, sent home with 10-day course of Keflex 500 mg every [address] abdomen pelvis taken in ED showed left perinephric stranding and thickened bladder wall with prostamegaly. Given patient's history of BPH, patient may be more prone to urinary tract infections overall. ? Continue ceftriaxone 1 gm daily [01/23--] ? Trend WBC, monitor for clinical improvement #Recent fever post travel ([place]) Patient had a low-grade fever a day after returning from [place]. Patient had a fever of 100.7 in the ED. WBC 11.1 on admission. Chest x-ray suspicious for early right basilar pneumonia. ? Monitor temperature every 4 hours ? Continue ceftriaxone 1 g daily [01/23--] ? Trend WBC, monitor for clinical improvement #History of hypertension Patient has a history of hypertension per chart review. However patient does not comply with home benazepril. Blood pressure has not been consistently elevated in ED and hospitalization. ? Will monitor blood pressure and consider antihypertensive if patient has consistent hypertension #History of BPH Patient has history of BPH per chart review. However patient does not comply with home tamsulosin. ? Will have patient follow-up with outpatient PCP for management DVT Prophylaxis: N/A GI Prophylaxis: IV Protonix Bowel: N/A Diet: Full liquid diet Beard: N/A Lines: Peripheral IV Antibiotics: Ceftriaxone Code Status: FULL Reason for Hospitalization: Upper GI bleed/PUD and UTI Other Barriers to Discharge: Colonoscopy Patient plan of care was discussed with the senior resident Dr. Foss (PGY-2) and attending physician Dr. Arcos. Tico Mccloud, PGY1
--- NOTE | 2025-01-24 15:44 | PD.IMCONS ---
HPI Data of Consult Requesting Physician: Jerman Bowling MD Primary Care Provider: Inocencia Parekh PA-C Consult Narrative Reason for consult: Melena low hemoglobin hematocrit iron saturation only 2% History of present illness: 74 years old male presented with 9-day history of melanotic stools grossly Hemoccult positive in the ER I evaluated the patient at the request of the ER OBGYN NURSE and the ER physician Rectal examination was grossly Hemoccult positive Hemoglobin hematocrit initially was 11.6 and 32.5 About a month ago his hemoglobin hematocrit 15.8 and 47.9 Platelet count today was 216,000 Iron saturation 2% Chest x-ray showed right basal pneumonia as patient has also presented with history of fevers CT scan of the abdomen and pelvis with contrast showed gastritis left perinephric stranding bladder wall thickening cc:: cc: Jerman Bowling MD Review of Systems Review of Systems Systems Reviewed: All systems reviewed, normal except as documented Meds Home Medications and Allergies Home Medications ?Medication ?Instructions ?Recorded ?Confirmed ?Type benazepril 20 mg tablet 20 mg PO QDAY 01/22/22 01/24/25 History tamsulosin 0.4 mg capsule 0.4 mg PO QDAY 01/22/22 01/24/25 History Allergies Allergy/AdvReac Type Severity Reaction Status Date / Time No Known Allergies Allergy Verified 01/23/25 13:25 Exam Vital Signs Temp Pulse Resp BP Pulse Ox O2 Del Method 96.9 F 80 12 115/64 96 Room Air 01/24/25 12:00 01/24/25 12:00 01/24/25 12:00 01/24/25 12:00 01/24/25 12:00 01/24/25 12:00 Constitutional Comments: Alert oriented Routine Respiratory Exam Comments: Normal to auscultation Routine Abdominal Exam Comments: Soft nontender Results Labs 01/24/25 05:10 01/24/25 05:10 Labs: Short CBC 01/24/25 Range/Units 05:10 WBC 10.7 H (3.8-10.6) Thou/mm3 Hgb 11.0 L (13.5-16.0) g/dL Hct 34.4 L (41.0-53.0) % Plt Count 172 D (140-440) Thou/mm3 BMP 01/24/25 05:10 Sodium 138 Potassium 3.7 Chloride 102 Carbon Dioxide 25.1 BUN 15 Creatinine 1.0 Glucose 102 Calcium 8.7 Liver Function 01/24/25 Range/Units 05:10 Total Bilirubin 1.2 D (0.3-1.2) mg/dL AST 15 (0-34) U/L ALT 14 (10-49) U/L Alkaline Phosphatase 61 (46-116) U/L Albumin 3.7 (3.4-4.8) gm/dL Assessment and Plan Additional Assessment & Plan Additional Plan: # Melena Consent obtained through the spanish interpreter/translator via phone with translation in [place] for fiberoptic esophagogastroduodenoscopy with possible biopsies possible therapeutic intervention under intravenous moderate sedation If the EGD does not fully explain the degree of anemia and 2% iron saturation consent also obtained for fiberoptic colonoscopy with possible biopsy possible therapeutic intervention which should be done tomorrow after GoLytely prep IV Protonix to continue Serial CBC If the hemoglobin drops below 8 g transfuse 1 unit of PRBC Thank you very much for the opportunity to participate in the care of this patient Other medical problems include Essential hypertension BPH Thank you very much for the opportunity to participate in the care of this patient
--- NOTE | 2025-01-24 15:57 | PC.SS ---
This is 74-year-old, life partnered, male who presented to the ED for abdominal pain. Patient appeared alert and oriented to self, place and situation. Patient appeared pleasant. Patient reported that he resides at home with his daughter. Patient reported that he is independent with the majority of his ADLs. Patient has no DME. Patient assigned his daughter, Iesha, as his medical decision makers. Patient's PCP is Inocencia Parekh. When medically clear, patient will return home; no transportation is needed.
[2025-01-24] MEDS: PANTOPRAZOLE/NS 80MG IV PREMIX 80 MG/100 ML BAG 10 MG IV (17:34)
[2025-01-24] MEDS: SUCRALFATE SUSP 1 GM/10 ML UDC PO ×2 (17:35→20:24)
[2025-01-24] MEDS: MG HYD/AL HYD/SIME (Maalox Reg) SUSP 30 ML UDC 15 ML PO ×2 (17:35→20:24)
--- NOTE | 2025-01-24 17:53 | PC.NURSE ---
Neal Mujica, son, can be contacted at [phone]. The Emergency contact Iesha does not have her phone at this time.
[2025-01-25] VITALS (8 sets, daily range): BP systolic 104–145; BP diastolic 65–90; PULSE 58–87; RESP 9–23; TEMP 35.9–36.7; O2SAT 92–98; BMI 23.3
[2025-01-25] MEDS: PANTOPRAZOLE/NS 80MG IV PREMIX 80 MG/100 ML BAG 10 MG IV ×3 (02:50→23:15)
[2025-01-25] MEDS: MG HYD/AL HYD/SIME (Maalox Reg) SUSP 30 ML UDC 15 ML PO ×4 (05:19→20:24)
[2025-01-25] MEDS: SUCRALFATE SUSP 1 GM/10 ML UDC PO ×4 (05:19→20:24)
[2025-01-25 06:11] LABS: Basophils # (Auto) 0.0 Thou/mm3 (0.0-0.2); Basophils % (Auto) 0 % (0-2.5); Eosinophils # (Auto) 0.1 Thou/mm3 (0.0-0.5); Eosinophils % (Auto) 2 % (0-10); Hematocrit 33.2 % (41.0-53.0); Hemoglobin 10.7 g/dL (13.5-16.0); Immature Granulocytes Auto 0.02 Thou/mm3 (0.00-0.00); Lymphocytes # (Auto) 1.6 Thou/mm3 (1.0-4.8); Lymphocytes % (Auto) 21 % (10-50); Mean Corpuscular HGB Conc 32.2 g/dl (31.0-37.0); Mean Corpuscular Hemoglobin 27.1 pg (25.0-35.0); Mean Corpuscular Volume 84 fL (80-100); Monocytes # (Auto) 1.1 Thou/mm3 (0.0-0.8); Monocytes % (Auto) 15 % (0-12); Neutrophils # (Auto) 4.9 Thou/mm3 (1.8-7.7); Neutrophils % (Auto) 63 % (37-80); Nucleated Red Blood Cell # 0.00 Thou/mm3 (0.00-0.00); Nucleated Red Blood Cell % 0 /100 WBC (0); Platelet Count 158 Thou/mm3 (140-440); RDW Standard Deviation 45.0 fL (35.1-43.9); Red Blood Count 3.95 Miln/mm3 (4.50-5.90); White Blood Count 7.8 Thou/mm3 (3.8-10.6)
[2025-01-25 06:53] LABS: Alanine Aminotransferase 12 U/L (10-49); Albumin, Serum 3.5 gm/dL (3.4-4.8); Albumin/Globulin Ratio 1.5 (1.2-2.2); Alkaline Phosphatase 60 U/L (46-116); Anion Gap 8 (7-16); Aspartate Amino Transferase 14 U/L (0-34); BUN/Creatinine Ratio 16 Ratio (12-20); Bilirubin,Total 0.8 mg/dL (0.3-1.2); Blood Urea Nitrogen 14 mg/dL (9-23); Calcium 8.5 mg/dL (8.3-10.6); Calcium (Corrected) 8.9 mg/dL (8.5-10.1); Carbon Dioxide 26.8 mMol/L (20.0-31.0); Chloride 104 mMol/L (98-107); Creatinine (Component) 0.9 mg/dL (0.6-1.3); Estimated Creatinine Clearance 86.3 mL/min (>60); Globulin 2.3 gm/dL (2.3-3.5); Glucose 93 mg/dL (74-106); Magnesium 1.7 mg/dL (1.6-2.6); Osmolality,Calculated 278 (275-295); Phosphorous 2.8 mg/dL (2.4-5.1); Potassium 3.8 mMol/L (3.4-5.1); Sodium 139 mMol/L (136-145); Total Protein 5.8 gm/dL (5.7-8.2); eGFR > 60 See Note
--- NOTE | 2025-01-25 08:41 | ESPR_ITS ---
<Statement entered by Angela Arcos MD - 02/03/25 14:32> I reviewed above note and agree with findings and plans. I have also personally examined the patient with medicine team and went over assessment and plan with medical team including brand marketing intern and resident physician. <Statement entered by Kirill Foss MD - 01/25/25 16:36> Patient is seen at bedside. Patient currently has no complaints and endorses to feeling significantly better. Patient underwent endoscopy yesterday and findings were consistent with severe duodenal ulcers with hemorrhage will continue Protonix drip today and transition patient to pantoprazole twice daily tomorrow will plan for discharge tomorrow as well. Also continue antibiotics for UTI. Patient was seen and examined by me personally. I have directly supervised and reviewed documentation by the team resident and agree with its findings with the above exceptions/and additional findings. ------- Plan of care was discussed with the attending, Dr. Isrrael Foss, PGY-2 Documentation for date of: 01/25/25 Subjective Subjective Interval history: Overnight events: No acute events overnight. Patient was seen and examined at bedside. AM vitals and labs reviewed. Patient had no complaints or concerns this morning. Patient had EGD performed yesterday, which found gastritis, erythematous duodenopathy, and two oozing duodenal ulcers with oozing hemorrhage in the duodenal bulb. Continuing ceftriaxone for UTI. Review of systems otherwise negative except for what is mentioned above. Exam Vital Signs Temp Pulse Resp BP Pulse Ox O2 Del Method 96.7 F L 62 9 L 104/72 92 L Room Air 01/25/25 04:00 01/25/25 06:29 01/25/25 06:29 01/25/25 04:00 01/25/25 06:29 01/25/25 04:00 Narrative Exam Physical Exam: General: Alert, no acute distress. Skin: Warm, dry, intact, no obvious rash. Head: Normocephalic, atraumatic. Eye: Normal conjunctiva, PERRL. Throat: Oral mucosa dry. No obvious lesions in oropharynx. Poor dentation. Cardiovascular: Regular rate and rhythm, no murmur, +S1/S2. Respiratory: Lungs are clear to auscultation, respirations unlabored, no crackles, no wheezing. Gastrointestinal: Soft, nontender, non-distended. No guarding or rebound tenderness. Extremities: No edema, no cyanosis, no clubbing. 2+ radial pulse bilaterally, 2+ pedal pulse bilaterally. Neuro: No focal deficits observed. Conversant, moving all extremities. No overt cerebellar signs/incoordination. Psychiatric: Cooperative, appropriate affect. Objective Labs 01/25/25 04:27 01/25/25 04:27 Labs: Laboratory Results - last 24 hr 01/25/25 04:27 WBC 7.8 RBC 3.95 L Hgb 10.7 L Hct 33.2 L MCV 84 MCH 27.1 MCHC 32.2 RDW Std Deviation 45.0 H Plt Count 158 Neut % (Auto) 63 Lymph % (Auto) 21 [place] % (Auto) 15 H Eos % (Auto) 2 Baso % (Auto) 0 Neut # (Auto) 4.9 Lymph # (Auto) 1.6 [place] # (Auto) 1.1 H Eos # (Auto) 0.1 Baso # (Auto) 0.0 Immature Gran # (Auto) 0.02 H Absolute Nucleated RBC 0.00 Immature Gran % 0 Nucleated RBC % 0 Sodium 139 Potassium 3.8 Chloride 104 Carbon Dioxide 26.8 Anion Gap 8 BUN 14 Creatinine 0.9 Estim Creat Clear Calc 86.3 eGFR > 60 BUN/Creatinine Ratio 16 Glucose 93 Calculated Osmolality 278 Calcium 8.5 Corrected Calcium 8.9 Phosphorus 2.8 Magnesium 1.7 Total Bilirubin 0.8 AST 14 ALT 12 Alkaline Phosphatase 60 Total Protein 5.8 Albumin 3.5 Globulin 2.3 Albumin/Globulin Ratio 1.5 Quality Measures Quality Measures VTE prophylaxis Advance care planning discussed with:: patient Assessment & Plan Assessment Current Active Medications: Generic Name Dose Route Start Last Admin Trade Name Freq PRN Reason Stop Dose Admin Al Hydrox/Mg Hydrox/Simethicone 15 ml 01/24/25 17:00 01/25/25 05:19 Mg Hyd/Al Hyd/Margaret (Maalox Reg) Susp 30 Ml Udc PO 02/23/25 16:59 15 ml QID BONITA Administration Ceftriaxone Sodium/Dextrose 1 gm in 50 mls @ 100 mls/hr 01/24/25 09:00 01/24/25 09:39 Rocephin/D5w 1gm Iv Premix IV 01/31/25 08:59 100 mls/hr QDAY BONITA Administration Pantoprazole Sodium 80 mg in 100 mls @ 10 mls/hr 01/24/25 16:12 01/25/25 02:50 Protonix/Ns 80mg Iv Premix IV 01/27/25 14:11 10 mls/hr Q10H BONITA Administration Sucralfate 1 gm 01/24/25 17:00 01/25/25 05:19 Sucralfate Susp 1 Gm/10 Ml Udc PO 02/23/25 16:59 1 gm QID BONITA Administration Plan Mr. Mujica is a 74 year old male with a history of H. pylori infection [2023], HTN, recent UTI, BPH who sought care at [facility] ED for increased chills/shivering and fevers. The patient was admitted for upper GI bleed/PUD and UTI. #Acute blood loss anemia secondary to #Upper GI bleed in the setting of #Peptic ulcer disease #Symptomatic anemia #Iron deficiency anemia Patient had positive FOBT, intermittent melena for the past 2 to 3 weeks, and a hemoglobin drop from 15.8 to 11.6 in about [address] abdomen pelvis taken in ED showed gastritis and duodenal pattern consistent with active peptic disease. Iron panel shows iron of 6, TIBC 230, iron saturation 2%, and unsaturated iron binding 224, which suggests iron deficiency anemia. ? Consulted GI, appreciate recommendations ? Patient had EGD on 01/24 which showed gastritis, erythematous duodenopathy, and two duodenal ulcers with oozing hemorrhage in the duodenal bulb ? Pending EGD biopsy results ? Will continue to monitor with daily CBC ? Will transfuse if hemoglobin drops below 8 per GI recommendations ? We will hold off on oral iron supplements and at this time due to gastritis, pending recommendation from GI #Urinary tract infection #Recurrent UTI Patient had a fever of 100.7 and chills with a UA that showed 321 WBC and 4+ bacteria. Urine leukocyte esterase positive. Patient was previously seen in ED on 01/04 with similar presentation, patient was found to have E. coli on urine culture, sent home with 10-day course of Keflex 500 mg every [address] abdomen pelvis taken in ED showed left perinephric stranding and thickened bladder wall with prostamegaly. Given patient's history of BPH, patient may be more prone to urinary tract infections overall. ? Continue ceftriaxone 1 gm daily [01/23--] ? Trend WBC, monitor for clinical improvement #Recent fever post travel ([place]) Patient had a low-grade fever a day after returning from [place]. Patient had a fever of 100.7 in the ED. WBC 11.1 on admission. Chest x-ray suspicious for early right basilar pneumonia. ? Monitor temperature every 4 hours ? Continue ceftriaxone 1 g daily [01/23--] ? Trend WBC, monitor for clinical improvement #History of primary hypertension Patient has a history of hypertension per chart review. However patient does not comply with home benazepril. Blood pressure has not been consistently elevated in ED and hospitalization. ? Will monitor blood pressure and consider antihypertensive if patient has consistent hypertension #History of BPH Patient has history of BPH per chart review. However patient does not comply with home tamsulosin. ? Will have patient follow-up with outpatient PCP for management DVT Prophylaxis: N/A GI Prophylaxis: IV Protonix Bowel: N/A Diet: Full liquid diet Beard: N/A Lines: Peripheral IV Antibiotics: Ceftriaxone Code Status: FULL Reason for Hospitalization: Upper GI bleed/PUD and UTI Other Barriers to Discharge: Colonoscopy Patient plan of care was discussed with the senior resident Dr. Foss (PGY-2) and attending physician Dr. Arcos. Tico Mccloud, PGY1
[2025-01-25] MEDS: cefTRIAXone/D5w 1gm IV premix 1 GM/50 ML BAG IV (09:01)
--- NOTE | 2025-01-25 12:13 | PC.SS ---
Update: Patient receiving IV protonix drip. Urine culture is pending.
--- NOTE | 2025-01-25 14:24 | PC.SS ---
Rounding Note: Patient obtaining Protonix drip. Dr. Brewer is consulting.
--- NOTE | 2025-01-25 14:30 | ESPR_ITS ---
Documentation for date of: 01/25/25 Subjective Subjective Interval history: Hemoglobin macro 10.7 33.2 Patient had 2 large ulcers duodenal ulcers Feroz classification 1B and severe duodenitis Biopsies pending for H. pylori from the region of the antrum and the cardia No need for a colonoscopy at this point Exam Vital Signs Temp Pulse Resp BP Pulse Ox O2 Del Method 97.4 F 71 23 H 117/76 96 Room Air 01/25/25 12:00 01/25/25 12:00 01/25/25 12:00 01/25/25 12:00 01/25/25 12:00 01/25/25 12:00 Objective Labs 01/25/25 04:27 01/25/25 04:27 Labs: Laboratory Results - last 24 hr 01/25/25 04:27 WBC 7.8 RBC 3.95 L Hgb 10.7 L Hct 33.2 L MCV 84 MCH 27.1 MCHC 32.2 RDW Std Deviation 45.0 H Plt Count 158 Neut % (Auto) 63 Lymph % (Auto) 21 [place] % (Auto) 15 H Eos % (Auto) 2 Baso % (Auto) 0 Neut # (Auto) 4.9 Lymph # (Auto) 1.6 [place] # (Auto) 1.1 H Eos # (Auto) 0.1 Baso # (Auto) 0.0 Immature Gran # (Auto) 0.02 H Absolute Nucleated RBC 0.00 Immature Gran % 0 Nucleated RBC % 0 Sodium 139 Potassium 3.8 Chloride 104 Carbon Dioxide 26.8 Anion Gap 8 BUN 14 Creatinine 0.9 Estim Creat Clear Calc 86.3 eGFR > 60 BUN/Creatinine Ratio 16 Glucose 93 Calculated Osmolality 278 Calcium 8.5 Corrected Calcium 8.9 Phosphorus 2.8 Magnesium 1.7 Total Bilirubin 0.8 AST 14 ALT 12 Alkaline Phosphatase 60 Total Protein 5.8 Albumin 3.5 Globulin 2.3 Albumin/Globulin Ratio 1.5 Impressions Impression: Acute upper GI bleed Acute posthemorrhagic anemia Large duodenal ulcers Severe duodenitis Gastritis biopsies pending for H. pylori Continue Protonix drip Advance to peptic ulcer disease diet Assessment & Plan A&P Narrative # Melena Consent obtained through the supervisor newspaper deliveries via phone with translation in Latvian for fiberoptic esophagogastroduodenoscopy with possible biopsies possible therapeutic intervention under intravenous moderate sedation If the EGD does not fully explain the degree of anemia and 2% iron saturation consent also obtained for fiberoptic colonoscopy with possible biopsy possible therapeutic intervention which should be done tomorrow after GoLytely prep IV Protonix to continue Serial CBC If the hemoglobin drops below 8 g transfuse 1 unit of PRBC Thank you very much for the opportunity to participate in the care of this patient Other medical problems include Essential hypertension BPH Thank you very much for the opportunity to participate in the care of this patient Time Spent With Patient Time: Total time spent is greater than 50% in coordination of care (as documented) at patient's floor/unit and/or counseling patient:
[2025-01-26] VITALS: BP 119/79; PULSE 61; RESP 17; TEMP 36.6; O2SAT 95
[2025-01-26 01:02] VITALS: PULSE 65; RESP 12; O2SAT 92
[2025-01-26 04:00] VITALS: BP 127/78; PULSE 63; RESP 16; TEMP 36.6; O2SAT 95
[2025-01-26] MEDS: SUCRALFATE SUSP 1 GM/10 ML UDC PO (05:25)
[2025-01-26] MEDS: MG HYD/AL HYD/SIME (Maalox Reg) SUSP 30 ML UDC 15 ML PO (05:25)
[2025-01-26 05:58] LABS: Basophils # (Auto) 0.0 Thou/mm3 (0.0-0.2); Basophils % (Auto) 0 % (0-2.5); Eosinophils # (Auto) 0.1 Thou/mm3 (0.0-0.5); Eosinophils % (Auto) 2 % (0-10); Hematocrit 34.7 % (41.0-53.0); Hemoglobin 11.2 g/dL (13.5-16.0); Immature Granulocytes Auto 0.01 Thou/mm3 (0.00-0.00); Lymphocytes # (Auto) 1.1 Thou/mm3 (1.0-4.8); Lymphocytes % (Auto) 18 % (10-50); Mean Corpuscular HGB Conc 32.3 g/dl (31.0-37.0); Mean Corpuscular Hemoglobin 26.9 pg (25.0-35.0); Mean Corpuscular Volume 83 fL (80-100); Monocytes # (Auto) 0.9 Thou/mm3 (0.0-0.8); Monocytes % (Auto) 14 % (0-12); Neutrophils # (Auto) 4.2 Thou/mm3 (1.8-7.7); Neutrophils % (Auto) 66 % (37-80); Nucleated Red Blood Cell # 0.00 Thou/mm3 (0.00-0.00); Nucleated Red Blood Cell % 0 /100 WBC (0); Platelet Count 143 Thou/mm3 (140-440); RDW Standard Deviation 43.5 fL (35.1-43.9); Red Blood Count 4.16 Miln/mm3 (4.50-5.90); White Blood Count 6.3 Thou/mm3 (3.8-10.6)
[2025-01-26 06:00] VITALS: BMI 17.0
[2025-01-26 06:29] LABS: Alanine Aminotransferase 16 U/L (10-49); Albumin, Serum 3.4 gm/dL (3.4-4.8); Albumin/Globulin Ratio 1.5 (1.2-2.2); Alkaline Phosphatase 61 U/L (46-116); Anion Gap 9 (7-16); Aspartate Amino Transferase 23 U/L (0-34); BUN/Creatinine Ratio 11 Ratio (12-20); Bilirubin,Total 0.6 mg/dL (0.3-1.2); Blood Urea Nitrogen 9 mg/dL (9-23); Calcium 8.7 mg/dL (8.3-10.6); Calcium (Corrected) 9.2 mg/dL (8.5-10.1); Carbon Dioxide 27.0 mMol/L (20.0-31.0); Chloride 102 mMol/L (98-107); Creatinine (Component) 0.8 mg/dL (0.6-1.3); Estimated Creatinine Clearance 97.0 mL/min (>60); Globulin 2.3 gm/dL (2.3-3.5); Glucose 99 mg/dL (74-106); Magnesium 1.6 mg/dL (1.6-2.6); Osmolality,Calculated 274 (275-295); Phosphorous 2.8 mg/dL (2.4-5.1); Potassium 3.8 mMol/L (3.4-5.1); Sodium 138 mMol/L (136-145); Total Protein 5.7 gm/dL (5.7-8.2); eGFR > 60 See Note
[2025-01-26 07:05] VITALS: PULSE 62; RESP 18; RESP 95
[2025-01-26 08:00] VITALS: BP 126/84; PULSE 69; PULSE 72; RESP 18; TEMP 36.1; O2SAT 96
[2025-01-26] MEDS: cefTRIAXone/D5w 1gm IV premix 1 GM/50 ML BAG IV (08:11)
[2025-01-26] MEDS: PANTOPRAZOLE/NS 80MG IV PREMIX 80 MG/100 ML BAG 10 MG IV (08:12)
--- NOTE | 2025-01-26 08:41 | PC.SS ---
Update: Plan is to d/c patient home today.
--- NOTE | 2025-01-26 09:46 | PD.RESPRO ---
Documentation for date of: 01/26/25 Exam Vital Signs Temp Pulse Resp BP Pulse Ox O2 Del Method 97.0 F 69 18 126/84 96 Room Air 01/26/25 08:00 01/26/25 08:00 01/26/25 08:00 01/26/25 08:00 01/26/25 08:00 01/26/25 08:00 Objective Labs 01/26/25 04:53 01/26/25 04:53 Labs: Laboratory Results - last 24 hr 01/26/25 04:53 WBC 6.3 RBC 4.16 L Hgb 11.2 L Hct 34.7 L MCV 83 MCH 26.9 MCHC 32.3 RDW Std Deviation 43.5 Plt Count 143 Neut % (Auto) 66 Lymph % (Auto) 18 [place] % (Auto) 14 H Eos % (Auto) 2 Baso % (Auto) 0 Neut # (Auto) 4.2 Lymph # (Auto) 1.1 [place] # (Auto) 0.9 H Eos # (Auto) 0.1 Baso # (Auto) 0.0 Immature Gran # (Auto) 0.01 H Absolute Nucleated RBC 0.00 Immature Gran % 0 Nucleated RBC % 0 Sodium 138 Potassium 3.8 Chloride 102 Carbon Dioxide 27.0 Anion Gap 9 BUN 9 Creatinine 0.8 Estim Creat Clear Calc 97.0 eGFR > 60 BUN/Creatinine Ratio 11 L Glucose 99 Calculated Osmolality 274 L Calcium 8.7 Corrected Calcium 9.2 Phosphorus 2.8 Magnesium 1.6 Total Bilirubin 0.6 AST 23 ALT 16 Alkaline Phosphatase 61 Total Protein 5.7 Albumin 3.4 Globulin 2.3 Albumin/Globulin Ratio 1.5 Quality Measures Quality Measures VTE prophylaxis Assessment & Plan Assessment Current Active Medications: Generic Name Dose Route Start Last Admin Trade Name Dylonq PRN Reason Stop Dose Admin Al Hydrox/Mg Hydrox/Simethicone 15 ml 01/24/25 17:00 01/26/25 05:25 Mg Hyd/Al Hyd/Margaret (Maalox Reg) Susp 30 Ml Udc PO 02/23/25 16:59 15 ml QID BONITA Administration Ceftriaxone Sodium/Dextrose 1 gm in 50 mls @ 100 mls/hr 01/24/25 09:00 01/26/25 08:11 Rocephin/D5w 1gm Iv Premix IV 01/31/25 08:59 100 mls/hr QDAY BONITA Administration Pantoprazole Sodium 80 mg in 100 mls @ 10 mls/hr 01/24/25 16:12 01/26/25 08:12 Protonix/Ns 80mg Iv Premix IV 01/27/25 14:11 10 mls/hr Q10H BONITA Administration Sucralfate 1 gm 01/24/25 17:00 01/26/25 05:25 Sucralfate Susp 1 Gm/10 Ml Udc PO 02/23/25 16:59 1 gm QID BONITA Administration
--- NOTE | 2025-01-26 09:46 | ESDS_ITS ---
Planned Discharge Date 01/26/25 DS: Providers Provider Date of admission: 01/23/25 21:05 Primary care physician: Inocencia Parekh PA-C Admitting Provider: Jerman Bowling MD Attending Provider on Admission: Meera Damon MD Consults: 01/23/25 18:29 Consult to Gastroenterology Stat Comment: UGIB Consulting Provider: Endy Brewer Attending Provider on DC: RESIDENT Sylvia Discharging Provider: RESIDENT Sylvia DS: Diagnosis Problem List Completed Was Problem List Reviewed/Reconciled?: Yes Hospital Course Hospital Course Hospital course: Reason for hospitalization:?Upper GI bleed/PUD and UTI Summary: This patient is a 75-year-old male with past medical history of hypertension, BPH, H. pylori infection (2023), UTI 01/04 who sought care at [facility] ED on 01/23 for increased chills/shivering and fevers. Due to concerns of melena for the past several weeks, unexplained weight loss over the past few months, and mild upper abdominal discomfort for the past few days, the patient was worked up for upper GI bleed in the ED. Patient was found to have positive FOBT and CT abdomen/pelvis showed gastritis and duodenal pattern consistent with active peptic disease and left perinephric stranding. The patient was admitted for upper GI bleed/PUD and UTI. GI was consulted and planned to do an EGD. On 01/24, the EGD was performed, which showed gastritis, erythematous duodenopathy, and two oozing duodenal ulcers with oozing hemorrhage in the duodenal bulb. GI started patient on IV Protonix, which completed on 01/25 in the evening, and Sucralfate. On 01/26, patient was transitioned to pantoprazole BID and Levofloxacin. The patient was noted to be alert and oriented to self, place, and situation. Vital signs were stable and patient had improvement in his WBC, H&H, and symptoms. Patient was medically stable for discharge back to home. Patient to follow up with PCP on further management of PUD and EGD biopsy results. Imaging: Abdomen/pelvis CT : Gastritis active peptic disease of the duodenum bladder. Left perinephric stranding consider a urinary tract infection. Significant prostamegaly. Thickening of bladder wall, differential would include cystitis, urinary tract outflow obstruction secondary to the patient's prostamegaly. Chest x-ray 01/23/2025: Suspicious for early right basilar pneumonia Discharge Recommendations: - Follow up with PCP within 1 week of discharge - Continue rest of medications as previously prescribed - Return to the ED or call EMS if symptoms return and/or worsen - Continue antibiotics for 4 days to complete antibiotic course If you don't have a PCP, you can make an appointment at the [facility]: [address] [place], [place] [id number] Hospital Diagnoses: #Acute blood loss anemia secondary to #Upper GI bleed in the setting of #Peptic ulcer disease #Symptomatic anemia #Iron deficiency anemia #Urinary tract infection #Recurrent UTI #History of primary hypertension #History of BPH #Melena Tico Mccloud, PGY-1 Status at Discharge Functional status at discharge: independent ambulation Overall status at discharge: patient is back to baseline Time Spent with Patient Time attestation: Total time spent providing and/or coordinating discharge services: 35 min Time spent: Greater than 30 minutes Exam Vital Signs Temp Pulse Resp BP Pulse Ox O2 Del Method 97.0 F 69 18 126/84 96 Room Air 01/26/25 08:00 01/26/25 08:00 01/26/25 08:00 01/26/25 08:00 01/26/25 08:00 01/26/25 08:00 Discharge Plan Plan Patient Disposition: HOME (Self Care) Patient condition on transfer: Stable Care Plan Goals: -Follow up with PCP within 1 week of discharge, if you do not have a primary care physician you can come see us at the [facility] by calling [phone] -You have been prescribed antibiotics for 4 additional days, please complete the course -Continue rest of medications as previously prescribed -Return to the ED or call EMS if symptoms return and/or worsen Prescriptions/Referrals Prescriptions/Med Rec: New alum-mag hydroxide-simeth 200-200-20 mg/5 mL Suspension 15 ml PO QID 30 Days Qty: 1800 0RF pantoprazole [Protonix] 40 mg tablet,delayed release (DR/EC) 40 mg PO BID 30 Days Qty: 60 0RF levofloxacin 750 mg tablet 750 mg PO QDAY Qty: 4 0RF sucralfate [Carafate] 1 gram tablet 1 g PO QID 30 Days Qty: 120 0RF Discontinued tamsulosin 0.4 mg Capsule 0.4 mg PO QDAY benazepril 20 mg Tablet 20 mg PO QDAY cephalexin 500 mg tablet 500 mg PO QID Qty: 40 0RF azithromycin 500 mg tablet See Rx Instructions .ROUTE .COMPLEX Qty: 6 0RF Rx Instructions: take 500 mg today (day 1), then 250 mg for 4 days (days 2-5) Referrals: Inocencia Parekh PA-C [Primary Care Provider] - Patient/Caregiver Discharge Instructions Discharge Activity: activity as tolerated Education Materials: Bleeding Gastrointestinal, Peptic Ulcer, Discharge Instructions- Eating ... Print Language: Jamaican Stand Alone Forms: Delma Award Info., Patient Portal Info Letter Discharge Order Discharge Orders: Discharge (Routine); Ordered 01/26/25 Ordered By: Kirill Foss Quality Discharge Quality Measures none MD Attestestation MD Attestation I attest that I was physically present for the evaluation, physical examination, lab and imaging review of the patient with the residents. I discussed the case with the residents and agree with the findings and plans of care as documented above. Meera Damon MD
[2025-01-26 11:30] VITALS: BP 129/81; PULSE 89; RESP 15; TEMP 36.3; O2SAT 98
--- NOTE | 2025-01-26 21:15 | PD.IMPROG ---
Documentation for date of: 01/26/25 Subjective Subjective Interval history: Late entry for the note Patient evaluated hemoglobin hematocrit level 0.2 and 34.0 Exam Vital Signs Temp Pulse Resp BP Pulse Ox O2 Del Method 97.4 F 89 15 129/81 98 Room Air 01/26/25 11:30 01/26/25 11:30 01/26/25 11:30 01/26/25 11:30 01/26/25 11:30 01/26/25 11:30 Objective Labs 01/26/25 04:53 01/26/25 04:53 Labs: Laboratory Results - last 24 hr 01/26/25 04:53 WBC 6.3 RBC 4.16 L Hgb 11.2 L Hct 34.7 L MCV 83 MCH 26.9 MCHC 32.3 RDW Std Deviation 43.5 Plt Count 143 Neut % (Auto) 66 Lymph % (Auto) 18 [place] % (Auto) 14 H Eos % (Auto) 2 Baso % (Auto) 0 Neut # (Auto) 4.2 Lymph # (Auto) 1.1 [place] # (Auto) 0.9 H Eos # (Auto) 0.1 Baso # (Auto) 0.0 Immature Gran # (Auto) 0.01 H Absolute Nucleated RBC 0.00 Immature Gran % 0 Nucleated RBC % 0 Sodium 138 Potassium 3.8 Chloride 102 Carbon Dioxide 27.0 Anion Gap 9 BUN 9 Creatinine 0.8 Estim Creat Clear Calc 97.0 eGFR > 60 BUN/Creatinine Ratio 11 L Glucose 99 Calculated Osmolality 274 L Calcium 8.7 Corrected Calcium 9.2 Phosphorus 2.8 Magnesium 1.6 Total Bilirubin 0.6 AST 23 ALT 16 Alkaline Phosphatase 61 Total Protein 5.7 Albumin 3.4 Globulin 2.3 Albumin/Globulin Ratio 1.5 Impressions Impression: Duodenal ulcers stable hemoglobin hematocrit okay to discharge patient on Protonix twice daily Assessment & Plan A&P Narrative # Melena Consent obtained through the it integration architect via phone with translation in Turkish for fiberoptic esophagogastroduodenoscopy with possible biopsies possible therapeutic intervention under intravenous moderate sedation If the EGD does not fully explain the degree of anemia and 2% iron saturation consent also obtained for fiberoptic colonoscopy with possible biopsy possible therapeutic intervention which should be done tomorrow after GoLytely prep IV Protonix to continue Serial CBC If the hemoglobin drops below 8 g transfuse 1 unit of PRBC Thank you very much for the opportunity to participate in the care of this patient Other medical problems include Essential hypertension BPH Thank you very much for the opportunity to participate in the care of this patient Time Spent With Patient Time: Total time spent is greater than 50% in coordination of care (as documented) at patient's floor/unit and/or counseling patient:
== END 2025-01-26 11:45 | disposition home or self-care (01) | DRG 377 ==
LOC: SERX 19:48 → SERHOLD 21:49 → S2NX 23:37
PROVIDERS: Specialist; Admitting Provider Student in an Organized Health Care Education/Training Program; Emergency Provider Nurse Practitioner Family; PCP Physician Assistant; Visit Provider Student in an Organized Health Care Education/Training Program
PROC: 0DB48ZX Excision of Esophagogastric Junction, Via Natural or Artificial Opening Endoscopic, Diagnostic (ICD-10-PCS; CPT 43239; principal; 2025-01-24 15:30)
DX: K26.4 Chronic or unspecified duodenal ulcer with hemorrhage (principal); J18.9 Pneumonia, unspecified organism; D62 Acute posthemorrhagic anemia; N39.0 Urinary tract infection, site not specified; I10 Essential (primary) hypertension; N41.9 Inflammatory disease of prostate, unspecified; K31.89 Other diseases of stomach and duodenum; D50.9 Iron deficiency anemia, unspecified; N40.0 Benign prostatic hyperplasia without lower urinary tract symptoms; K29.80 Duodenitis without bleeding; K29.71 Gastritis, unspecified, with bleeding; Z87.440 Personal history of urinary (tract) infections; Z86.19 Personal history of other infectious and parasitic diseases
CPT/HCPCS: 36415; 71045; 74177; 80053; 81001; 83540; 83550; 83690; 83735; 84100; 85025; 85610; 85730; 86850; 86900; 86901; 87086; 87811; 93005; 96365; 96375; 99284; A4649; J0131; J0696; J1200; J2250; J2470; J3010; J3490; Q9967; A9270